=== PATIENT | male | born 1940 | race Caucasian/White ===

== ENCOUNTER 2016-11-29 10:19 | Day surgery (SDC) | payer MEDICARE, OTHER ==
[2016-11-29] MEDS ORDERED: LACTATED RINGERS 1,000 ML IV ONE (10:33)
[2016-11-29] MEDS ORDERED: MIDAZOLAM 2 MG/2 ML VIAL IVP ONE (13:00)
[2016-11-29] MEDS ORDERED: fentaNYL 250 MCG/5 ML VIAL IVP ONE (13:00)
== END 2016-11-29 10:20 | disposition home or self-care (01) ==
PROC: 0DBL8ZZ Excision of Transverse Colon, Via Natural or Artificial Opening Endoscopic (ICD-10-PCS; principal; 2016-11-29 11:25)
DX: Z12.11 Encounter for screening for malignant neoplasm of colon (principal); D12.3 Benign neoplasm of transverse colon; K57.30 Diverticulosis of large intestine without perforation or abscess without bleeding; K64.8 Other hemorrhoids; K59.00 Constipation, unspecified
CPT/HCPCS: 45380; J3010; J7120

== ENCOUNTER 2017-02-21 08:00 | Outpatient (CLI) | payer MEDICARE, OTHER | END 2017-02-21 08:01 | DX: C61 Malignant neoplasm of prostate (principal) ==

== ENCOUNTER 2017-08-29 11:27 | Outpatient (CLI) | payer MEDICARE, OTHER ==
[2017-08-29 18:37] LABS: PSA TOTAL 0.753 ng/mL (0.000-2.000)
== END 2017-08-29 11:28 | disposition home or self-care (01) ==
LOC: LAB.S 11:27
PROVIDERS: ATTEND Family Medicine
DX: C61 Malignant neoplasm of prostate (principal)
CPT/HCPCS: 36415; 84153; 84403

== ENCOUNTER 2018-02-06 08:00 | Outpatient (CLI) | payer MEDICARE, OTHER ==
[2018-02-06 19:42] LABS: PSA TOTAL 0.65 ng/mL (0.000-2.000)
== END 2018-02-06 08:01 ==
LOC: LAB.S 08:00
PROVIDERS: ATTEND Family Medicine
DX: C61 Malignant neoplasm of prostate (principal)
CPT/HCPCS: 36415; 84153; 84403

== ENCOUNTER 2018-08-23 08:37 | Outpatient (CLI) | payer MEDICARE, OTHER ==
[2018-08-23 18:25] LABS: ALBUMIN 4.4 g/dL (3.2-5.5); ALBUMIN/GLOBULIN RATIO 1.7 (1.0-2.2); ALKALINE PHOSPHATASE 52 IU/L (42-121); ALT ALANINE AMINOTRANSFERASE 25 IU/L (10-60); AST ASPARTATE AMINOTRANSFERASE 29 IU/L (10-42); BILIRUBIN,TOTAL 1.1 mg/dL (0.2-1.0); BUN - BLOOD UREA NITROGEN 16 mg/dL (6-20); CALCIUM 9.3 mg/dL (8.5-10.3); CARBON DIOXIDE - CO2 29 mmol/L (21-32); CHLORIDE 103 mmol/L (101-111); CHOL/HDL RATIO 4.4 (<5.0); CHOLESTEROL 239 mg/dL; CREATININE 1.1 mg/dL (0.6-1.2); GFR - MDRD 65 (>89); GLUCOSE 98 mg/dL (70-100); HDL CHOLESTEROL 54 mg/dL; LDL CHOLESTEROL,CALCULATED 153 mg/dL; LDL/HDL RATIO 2.8 (<3.6); SODIUM 139 mmol/L (135-145); VLDL CHOLESTEROL 32 mg/dL
[2018-08-23 18:26] LABS: PSA TOTAL 0.545 ng/mL (0.000-2.000)
== END 2018-08-23 08:38 | disposition home or self-care (01) ==
LOC: LAB.F 08:37
PROVIDERS: ATTEND Nurse Practitioner Family
DX: E78.5 Hyperlipidemia, unspecified (principal); C61 Malignant neoplasm of prostate
CPT/HCPCS: 36415; 80053; 80061; 83721; 84153; 84403

== ENCOUNTER 2019-02-12 08:00 | Outpatient (CLI) | payer MEDICARE, OTHER | END 2019-02-12 23:59 | disposition home or self-care (01) | LOC: LAB.S 08:00 | PROVIDERS: ATTEND Nurse Practitioner | DX: N40.1 Benign prostatic hyperplasia with lower urinary tract symptoms (principal) | CPT/HCPCS: 36415; 84153 ==

== ENCOUNTER 2019-08-15 07:21 | Outpatient (CLI) | payer MEDICARE, OTHER ==
[2019-08-15 10:25] LABS: ALBUMIN 4.1 g/dL (3.2-5.5); ALBUMIN/GLOBULIN RATIO 1.5 (1.0-2.2); ALKALINE PHOSPHATASE 50 IU/L (42-121); ALT ALANINE AMINOTRANSFERASE 27 IU/L (10-60); AST ASPARTATE AMINOTRANSFERASE 31 IU/L (10-42); BILIRUBIN,TOTAL 0.9 mg/dL (0.2-1.0); BUN - BLOOD UREA NITROGEN 18 mg/dL (6-20); CALCIUM 9.1 mg/dL (8.5-10.3); CARBON DIOXIDE - CO2 28 mmol/L (21-32); CHLORIDE 105 mmol/L (101-111); CHOL/HDL RATIO 4.3 (<5.0); CHOLESTEROL 226 mg/dL; CREATININE 1.1 mg/dL (0.6-1.2); GFR - MDRD 65 (>89); GLUCOSE 103 mg/dL (70-100); HDL CHOLESTEROL 53 mg/dL; LDL CHOLESTEROL,CALCULATED 152 mg/dL; LDL/HDL RATIO 2.9 (<3.6); SODIUM 141 mmol/L (135-145); TOTAL PROTEIN 6.9 g/dL (6.7-8.2); VLDL CHOLESTEROL 21 mg/dL
[2019-08-15 10:28] LABS: PSA TOTAL 0.48 ng/mL (0.000-2.000)
== END 2019-08-15 07:22 | disposition home or self-care (01) ==
LOC: LAB.S 07:21
PROVIDERS: ATTEND Internal Medicine
DX: E78.5 Hyperlipidemia, unspecified (principal); C61 Malignant neoplasm of prostate
CPT/HCPCS: 36415; 80053; 80061; 83721; 84153

== ENCOUNTER 2020-02-28 10:40 | Outpatient (CLI) | payer MEDICARE, OTHER | END 2020-02-28 10:41 | disposition home or self-care (01) | LOC: LAB 10:40 | PROVIDERS: ATTEND Urology | DX: C61 Malignant neoplasm of prostate (principal) | CPT/HCPCS: 36415; 84153 ==

== ENCOUNTER 2021-03-06 13:29 | Outpatient (CLI) | payer MEDICARE, OTHER | END 2021-03-06 13:30 | disposition home or self-care (01) | LOC: LAB.S 13:29 | PROVIDERS: ATTEND Urology | DX: C61 Malignant neoplasm of prostate (principal); Z80.42 Family history of malignant neoplasm of prostate | CPT/HCPCS: 36415; 84153 ==